=== PATIENT | female | born 1945 | race Caucasian/White ===

== ENCOUNTER 2021-01-09 05:51 | Day surgery (SDC) | payer MEDICARE, BC ==
[2021-01-09] VITALS (8 sets, daily range): BP systolic 116–142; BP diastolic 62–75
[~2021-01-09] VITALS: Ht 162.6 cm; Wt 89.1 kg
[2021-01-09] MEDS ORDERED: albumin 25% 100mL bottle x 1 IV PRN (06:15)
[2021-01-09] MEDS ORDERED: FURO20TA4 PO (06:38)
[2021-01-09] MEDS ORDERED: SPIR50TA5 PO (06:38)
[2021-01-09] MEDS ORDERED: CARV6.253 PO (06:38)
[2021-01-09] MEDS ORDERED: LORA-268 PO (06:38)
[2021-01-09] MEDS ORDERED: ATOR10TA70 PO (06:38)
[2021-01-09] MEDS ORDERED: Slow Fe PO (06:38)
[2021-01-09] MEDS ORDERED: FLUT1AER PO (06:38)
[2021-01-09] MEDS ORDERED: OMEP-50 PO (06:38)
[2021-01-09 09:39] LABS: ALBUMIN,BODY FLUID 1.3 G/DL; TOTAL PROTEIN,BODY FLUID 2.5 G/DL
[2021-01-09 09:48] LABS: BF WBC COUNT 255 /CU MM (0-1000); BFAPPEAR CLOUDY; BFCOLOR YELLOW; BFVOLUME 50 ML
[2021-01-09 09:49] LABS: BF RBC COUNT 3450 /CU MM
[2021-01-09 10:14] LABS: BF MESOTHELIAL CELLS FEW; EOSINOPHILS,BODY FLUID 1 %; LYMPHOCYTES,BODY FLUID 86 %; MONOCYTES,BODY FLUID 2 %; NEUTROPHILS,BODY FLUID 11 %
== END 2021-01-09 10:05 | disposition home or self-care (01) ==
LOC: SSTAY O 05:51
PROVIDERS: ATTEND Radiology Vascular & Interventional Radiology
DX: R18.8 Other ascites (principal)
CPT/HCPCS: 49083; 82042; 84157; 89051; P9047

== ENCOUNTER 2021-02-28 06:28 | Day surgery (SDC) | payer MEDICARE, BC ==
[2021-02-28] VITALS (9 sets, daily range): BP systolic 120–144; BP diastolic 56–85
[~2021-02-28] VITALS: Ht 162.6 cm; Wt 78.0 kg
[~2021-02-28 06:28] MED LIST: ATOR10TA70 PO; CARV6.253 PO; FLUT1AER PO; FURO20TA4 PO; LORA-268 PO; OMEP-50 PO; SPIR50TA5 PO; Slow Fe PO
[2021-02-28] MEDS ORDERED: albumin 25% 100mL bottle x 1 IV PRN (07:00)
[2021-02-28] MEDS ORDERED: FURO-150 PO (07:26)
[2021-02-28] MEDS ORDERED: SPIR50TA5 PO (07:26)
== END 2021-02-28 11:00 | disposition home or self-care (01) ==
LOC: SSTAY O 06:28
PROVIDERS: ATTEND Radiology Diagnostic Radiology
DX: R18.8 Other ascites (principal); K74.60 Unspecified cirrhosis of liver; D50.9 Iron deficiency anemia, unspecified; K76.6 Portal hypertension; Z85.3 Personal history of malignant neoplasm of breast; Z98.890 Other specified postprocedural states; Z79.899 Other long term (current) drug therapy; Z87.19 Personal history of other diseases of the digestive system
CPT/HCPCS: 49083; P9047

== ENCOUNTER 2021-04-11 06:13 | Day surgery (SDC) | payer MEDICARE, BC ==
[~2021-04-11] VITALS: Ht 162.6 cm; Wt 73.1 kg
[~2021-04-11 06:13] MED LIST changes: +FURO-150 PO; -FURO20TA4 PO
[2021-04-11 06:41] VITALS: BP 131/70
[2021-04-11] MEDS ORDERED: albumin 25% 100mL bottle x 1 IV PRN (06:45)
[2021-04-11 08:15] VITALS: BP 110/48
[2021-04-11 08:30] VITALS: BP 108/43
[2021-04-11 08:45] VITALS: BP 101/49
[2021-04-11 09:00] VITALS: BP 107/54
[2021-04-11 09:15] VITALS: BP 120/58
== END 2021-04-11 09:23 | disposition home or self-care (01) ==
LOC: SSTAY O 06:13
PROVIDERS: ATTEND Radiology Vascular & Interventional Radiology
DX: R18.8 Other ascites (principal); Z53.8 Procedure and treatment not carried out for other reasons; R14.0 Abdominal distension (gaseous); K74.60 Unspecified cirrhosis of liver; D50.9 Iron deficiency anemia, unspecified; Z85.3 Personal history of malignant neoplasm of breast; Z98.890 Other specified postprocedural states; Z79.899 Other long term (current) drug therapy
CPT/HCPCS: 76705; P9047